=== PATIENT | male | born 1985 | race Caucasian/White ===

== ENCOUNTER 2019-11-25 15:38 | Outpatient (CLI) | payer BC ==
--- NOTE | 2019-11-25 16:09 | RAD ---
XR Ankle Rt 3 View STANDARD HISTORY: Right ankle pain FINDINGS: No fracture or dislocation is identified. The ankle mortise is maintained.
--- NOTE | 2019-11-25 16:12 | RAD ---
RADIOGRAPH RIGHTWRIST 3 VIEWS: DATE: 11/25/2019 HISTORY: 33-year-old male with right wrist pain. FINDINGS: No fracture is identified. However, if there is snuffbox tenderness following trauma that suggests an occult scaphoid fracture, then the general recommendation is immobilization and follow-up imaging in 5-10 days. Alignment is normal. Joint spaces are maintained without erosions or large osteophytes. There are no abnormal soft tissue calcifications. No evidence of periostitis, permeative lesion, osteolytic lesion, or osteoblastic lesion. IMPRESSION: Normal radiograph of wrist.
--- NOTE | 2019-11-25 16:12 | RAD ---
RADIOGRAPH LEFTWRIST 3 VIEWS: DATE: 11/25/2019 HISTORY: 33-year-old male with left wrist pain FINDINGS: No fracture is identified. However, if there is snuffbox tenderness following trauma that suggests an occult scaphoid fracture, then the general recommendation is immobilization and follow-up imaging in 5-10 days. Alignment is normal. Joint spaces are maintained without erosions or large osteophytes. There are no abnormal soft tissue calcifications. No evidence of periostitis, permeative lesion, osteolytic lesion, or osteoblastic lesion. IMPRESSION: Normal radiograph of wrist.
== END 2019-11-25 15:39 | disposition home or self-care (01) ==
LOC: SCSRAD 15:38
PROVIDERS: ATTEND Internal Medicine Rheumatology
DX: M77.9 Enthesopathy, unspecified (principal)

== ENCOUNTER 2020-05-10 09:11 | Outpatient (CLI) | payer BC ==
--- NOTE | 2020-05-10 09:46 | ULT ---
Exam: Soft tissue ultrasound HISTORY: Abdominal wall mass Comparison none FINDINGS: Targeted sonographic imaging of the region of concern is performed FINDINGS: In the subcutaneous fat, there is a well-circumscribed hyperechoic focus measuring 0.7 x 1. 6 x 2.5 cm. Fat-containing lesion is favored. No evidence of a abdominal wall hernia IMPRESSION: Hyperechoic focus in the subcutaneous fat as described above. Fat-containing lesion is lott spected. Correlate clinically. Additional imaging as clinically indicated.
== END 2020-05-10 09:12 | disposition home or self-care (01) ==
LOC: SCSULT 09:11
PROVIDERS: ATTEND Family Medicine
DX: R19.06 Epigastric swelling, mass or lump (principal)
CPT/HCPCS: 76705

== ENCOUNTER 2021-05-24 12:53 | Outpatient (CLI) | payer BC | END 2021-05-24 12:54 | disposition home or self-care (01) | LOC: TBSIIMAG 12:53 | PROVIDERS: ATTEND Family Medicine | DX: M54.5 Low back pain (principal); M51.26 Other intervertebral disc displacement, lumbar region; M51.27 Other intervertebral disc displacement, lumbosacral region | CPT/HCPCS: 72148 ==